=== PATIENT | male | born 1975 | race Caucasian/White ===

== ENCOUNTER 2017-07-21 09:13 | Emergency (ER) | payer MEDICAID, OTHER ==
[~2017-07-21 09:13] MED LIST: HYDR50TAB PO; LISI-538 PO; NUCY50TA6 PO; OXYC1TAB16 PO; VERA240T16 PO
[2017-07-21] MEDS ORDERED: AMOXICILLIN 500 MG CAP PO ONE (09:30)
[2017-07-21] MEDS ORDERED: PERCOCET 5MG/325MG TAB PO ONE (09:30)
[2017-07-21] MEDS ORDERED: AMOX500C PO (09:34)
[2017-07-21] MEDS ORDERED: PERC5TAB12 PO (09:34)
== END 2017-07-21 09:50 | disposition home or self-care (01) ==
LOC: M ED 09:13
DX: K02.9 Dental caries, unspecified (principal); Z72.0 Tobacco use

== ENCOUNTER → 2019-03-24 | Outpatient (REF) | payer OTHER ==
[~2019-03-24] MED LIST changes: +AMOX500C PO; +NUCY50TA19 PO; -NUCY50TA6 PO; +OXYC10TA3 PO; -OXYC1TAB16 PO; +PERC5TAB12 PO
== END ==
LOC: M LAB LCGH 11:59
PROVIDERS: ATTEND Surgery
DX: D50.9 Iron deficiency anemia, unspecified (principal); R19.5 Other fecal abnormalities